=== PATIENT | male | born 1950 | race Caucasian/White ===

== ENCOUNTER 2018-10-28 07:10 | Day surgery (SDC) | payer OTHER ==
[2018-10-28 08:48] LABS: POTASSIUM 4.7 mmol/L (3.5-5.1)
[2018-10-28] MEDS ORDERED: PROPOFOL 20 ML (09:18)
[2018-10-28] MEDS ORDERED: FENTAnyl 50 MCG/ML VIAL (09:18)
[2018-10-28] MEDS ORDERED: MIDAZOLAM 1 MG/ML 2 ML INJ (09:18)
[2018-10-28] MEDS ORDERED: ROCURONIUM 50 MG INJ (09:18)
[2018-10-28] MEDS ORDERED: LIDOCAINE 100 MG SYRINGE (09:18)
[2018-10-28] MEDS ORDERED: CEFAZOLIN 1 GM/50 ML (PMX) 50 ML IVPB (09:30)
[2018-10-28] MEDS ORDERED: SOD CHLORIDE 0.9% 1,000 ML IV (09:30)
[2018-10-28] MEDS ORDERED: ONDANSETRON 4 MG INJ (09:58)
[2018-10-28] MEDS ORDERED: morphine 2 MG INJ IV (10:00)
[2018-10-28] MEDS ORDERED: EPHEDrine 25 MG/5 ML SYG IV (10:00)
[2018-10-28] MEDS ORDERED: LABETALOL HCL 20MG INJ IV (10:00)
[2018-10-28] MEDS ORDERED: ONDANSETRON 4 MG INJ IV (10:00)
[2018-10-28] MEDS ORDERED: HYDROmorphONE 1 MG/5 ML IV SYRINGE IV (10:00)
[2018-10-28] MEDS ORDERED: MEPERIDINE 25 MG INJ IV (10:00)
[2018-10-28] MEDS ORDERED: METOCLOPRAMIDE 10 MG INJ IV (10:00)
[2018-10-28] MEDS ORDERED: hydrALAzine 20 MG INJ IV (10:00)
[2018-10-28] MEDS ORDERED: FENTAnyl 50 MCG/ML VIAL IV (10:00)
== END 2018-10-28 12:54 | disposition home or self-care (01) ==
LOC: SDS 07:10
DX: Z45.2 Encounter for adjustment and management of vascular access device (principal); I12.0 Hypertensive chronic kidney disease with stage 5 chronic kidney disease or end stage renal disease; N18.6 End stage renal disease; Z99.2 Dependence on renal dialysis; I25.10 Atherosclerotic heart disease of native coronary artery without angina pectoris; E11.9 Type 2 diabetes mellitus without complications; Z79.4 Long term (current) use of insulin
CPT/HCPCS: 36589; 82962; 84132; 88300